=== PATIENT | female | born 1980 | race African-American/Black ===

== ENCOUNTER → 2019-10-13 | Outpatient (CLI) | payer BC ==
[~2019-10-13] MED LIST: HYDROCODON-ACE1 EAC7; IBUPROFEN 600600 M1; IRON325 PO; PREFERA OB TAB1 EACH; PRENATAL PO; STOOL SOFTENER50 MG PO
== END ==
LOC: CAT 15:19
DX: M54.2 Cervicalgia (principal); R51 Headache